=== PATIENT | female | born 1985 | race Two or more races ===

== ENCOUNTER 2018-08-28 21:46 | Emergency (ER) | payer OTHER ==
[~2018-08-28] VITALS: Ht 149.9 cm; Wt 86.2 kg
[2018-08-28 21:57] VITALS: BP 147/96
[2018-08-28 22:35] LABS: APPEARANCE,URINE CLEAR (CLEAR); BILIRUBIN,URINE NEGATIVE (NEGATIVE); BLOOD, URINE NEGATIVE Ery/uL (NEGATIVE); COLOR,URINE OTHER (YELLOW); KETONES,URINE NEGATIVE (NEGATIVE); LEUKOCYTE ESTERASE ,URINE NEGATIVE (NEGATIVE); NITRITE, URINE NEGATIVE (NEGATIVE); PH,URINE 5.5 (5.0-8.0); PROTEIN,URINE NEGATIVE (NEGATIVE); UGLUCOSE NEGATIVE (NEGATIVE); UROBILINOGEN,URINE 0.2 EU/dL (0.2)
== END 2018-08-28 23:05 | disposition home or self-care (01) ==
LOC: ER 21:48
DX: O99.341 Other mental disorders complicating pregnancy, first trimester (principal); O99.331 Smoking (tobacco) complicating pregnancy, first trimester; F41.9 Anxiety disorder, unspecified; F19.10 Other psychoactive substance abuse, uncomplicated; O16.1 Unspecified maternal hypertension, first trimester; F32.9 Major depressive disorder, single episode, unspecified; Z87.01 Personal history of pneumonia (recurrent); Z3A.10 10 weeks gestation of pregnancy
CPT/HCPCS: 81001; 84703; 99284; 99406; A4606; Z7610; 81000-TC